=== PATIENT | female | born 1985 | race American Indian/Alaskan Native ===

== ENCOUNTER 2021-05-15 14:32 | Emergency (ER) | payer MEDICAID ==
[2021-05-15 15:09] VITALS: BP 140/94
--- NOTE | 2021-05-15 15:42 | XRay Report ---
RIGHT FOOT 3 VIEW(S) INDICATION / CLINICAL INFORMATION: TOE INJURY COMPARISON: None available. FINDINGS: BONES / JOINT(S): No acute fracture or subluxation. No significant arthritis. SOFT TISSUES: No significant abnormality. ADDITIONAL FINDINGS: None. Signer Name: Cornelio Blackburn MD Signed: 05/15/2021 3:37 PM Workstation Name: [id number]
== END 2021-05-15 18:41 | disposition left against medical advice (07) ==
LOC: ED 14:32
DX: S90.931A Unspecified superficial injury of right great toe, initial encounter (principal); Z53.21 Procedure and treatment not carried out due to patient leaving prior to being seen by health care provider; X58.XXXA Exposure to other specified factors, initial encounter; Y93.89 Activity, other specified; Y92.89 Other specified places as the place of occurrence of the external cause; Y99.8 Other external cause status